=== PATIENT | male | born 1990 | race African-American/Black ===

== ENCOUNTER 2019-04-06 10:25 | Emergency (ER) | payer SELFPAY ==
[~2019-04-06] VITALS: Ht 195.6 cm; Wt 117.9 kg
[2019-04-06 10:35] VITALS: BP 166/96
--- NOTE | 2019-04-06 11:04 | PHYS DOC ---
Adult General Chief Complaint Chief Complaint: SEXUALLY TRANSMITTED DISEASE HPI HPI Patient is a 28 year old male who presents with white penile discharge and dysuria this been ongoing for 4 days. The patient states a 2 weeks ago he slept with a stripper. Denies any other complaints. Review of Systems Review of Systems Constitutional: Denies fever or chills [] Eyes: Denies change in visual acuity, redness, or eye pain [] HENT: Denies nasal congestion or sore throat [] Respiratory: Denies cough or shortness of breath [] Cardiovascular: No additional information not addressed in HPI [] GI: Denies abdominal pain, nausea, vomiting, bloody stools or diarrhea [] : Reports dysuria and penile discharge. Musculoskeletal: Denies back pain or joint pain [] Integument: Denies rash or skin lesions [] Neurologic: Denies headache, focal weakness or sensory changes [] Endocrine: Denies polyuria or polydipsia [] Complete systems were reviewed and found to be within normal limits, except as documented in this note. Current Medications Current Medications Current Medications Medications (Trade) Dose Ordered Sig/You Start Time Stop Time Status Last Admin Dose Admin Azithromycin (Zithromax) 1,000 mg 1X ONCE 04/06/19 11:30 04/06/19 11:31 DC 04/06/19 11:20 1,000 MG Ceftriaxone Sodium (Rocephin Im) 250 mg 1X STAT 04/06/19 11:13 04/06/19 11:16 DC 04/06/19 11:24 250 MG Ceftriaxone Sodium (Rocephin) 1 gm 1X ONCE 04/06/19 11:30 04/06/19 11:15 DC Allergies Allergies Allergies Coded Allergies Type Severity Reaction Last Updated Verified No Known Drug Allergies 04/06/19 No Physical Exam Physical Exam Constitutional: Well developed, well nourished, no acute distress, non-toxic appearance. [] HENT: Normocephalic, atraumatic, bilateral external ears normal, oropharynx moist, no oral exudates, nose normal. [] Eyes: PERRLA, EOMI, conjunctiva normal, no discharge. [] Neck: Normal range of motion, no tenderness, supple, no stridor. [] Skin: Warm, dry, no erythema, no rash. [] Back: No tenderness, no CVA tenderness. [] Extremities: No tenderness, no cyanosis, no clubbing, ROM intact, no edema. [] Neurologic: Alert and oriented X 3, normal motor function, normal sensory function, no focal deficits noted. [] Psychologic: Affect normal, judgement normal, mood normal. [] Current Patient Data Vital Signs Vital Signs Date Time Temp Pulse Resp B/P (MAP) Pulse Ox O2 Delivery O2 Flow Rate FiO2 04/06/19 10:35 97.8 89 14 166/96 (119) 100 Room Air 97.8 Lab Values Laboratory Tests Test 04/06/19 10:40 Urine Collection Type Void Urine Color Yellow Urine Clarity Clear Urine pH 6.0 Urine Specific [place] 1.020 Urine Protein Negative mg/dL (NEG-TRACE) Urine Glucose (UA) Negative mg/dL (NEG) Urine Ketones (Stick) Negative mg/dL (NEG) Urine Blood Negative (NEG) Urine Nitrite Negative (NEG) Urine Bilirubin Negative (NEG) Urine Urobilinogen Dipstick 1.0 mg/dL (0.2 mg/dL) Urine Leukocyte Esterase Large (NEG) Urine RBC 0 /HPF (0-2) Urine WBC >40 /HPF (0-4) Urine Squamous Epithelial Cells Occ /LPF Urine Bacteria Few /HPF (0-FEW) EKG EKG [] Radiology/Procedures Radiology/Procedures [] Course & Med Decision Making Course & Med Decision Making Pertinent Labs and Imaging studies reviewed. (See chart for details) Will treat for gonorrhea and chlamydia with Rocephin and Ceftriaxone and get urine. Urine shows leukocytes. Will treat with Keflex. Dragon Disclaimer Dragon Disclaimer This electronic medical record was generated, in whole or in part, using a voice recognition dictation system. Departure Departure Impression: Primary Impression: Concern about sexually transmitted disease in male without diagnosis Additional Impression: Urinary tract infection Disposition: HOME, SELF-CARE Condition: STABLE Referrals: NO PCP (PCP) Patient Instructions: Sexually Transmitted Disease Additional Instructions: Thank you for visiting [facility]. We appreciate you trusting us with your care. If any additional problems come up don't hesitate to return to visit us. Please follow up with your primary care provider so they can plan additional care if needed and know about the problem that you had. If symptoms worsen come back to the Emergency Department. Any concerning symptoms that start such as chest pain, shortness of air, weakness or numbness on one side of the body, running high fevers or any other concerning symptoms return to the ER. Your STD results will be back in 48-72 hours. You will get a call if they are positive. No sexually intercourse for 2 weeks. If positive you have been treated and just need to notify any partners. Scripts Cephalexin (KEFLEX) 500 Mg Capsule 1 CAP PO QID for 5 Days, #20 CAP 0 Refills Prov: RAFIQ ESCUDERO APRN 04/06/19 Problem Qualifiers Additional Impression: Urinary tract infection Urinary tract infection type: acute cystitis Hematuria presence: without hematuria Qualified Codes: N30.00 - Acute cystitis without hematuria RAFIQ ESCUDERO APRN Apr 06, 2019 11:04
[2019-04-06] MEDS ORDERED: cefTRIAXone IM 250 MG VIAL IM STA (11:13)
[2019-04-06 11:18] LABS: BILIRUBIN,URINE NEGATIVE (NEG); CLARITY,URINE CLEAR; COLOR,URINE YELLOW; NITRITE,URINE NEGATIVE (NEG); PROTEIN,URINE NEGATIVE (NEG-TRACE)
[2019-04-06] MEDS ORDERED: cefTRIAXone IV Push 1 GM VIAL. IVP ONE (11:30)
[2019-04-06] MEDS ORDERED: AZITHROMYCIN 250 MG TABLET. PO ONE (11:30)
[2019-04-06 11:36] LABS: SQUAMOUS EPITHELIAL CELL,UR OCC /LPF
[2019-04-06 11:37] LABS: BACTERIA,URINE FEW /HPF (0-FEW); RBC,URINE 0 /HPF (0-2); WBC,URINE >40 /HPF (0-4)
[2019-04-06] MEDS ORDERED: CEPH-264 PO (11:45)
== END 2019-04-06 11:59 | disposition home or self-care (01) ==
LOC: ER 10:25
DX: N39.0 Urinary tract infection, site not specified (principal); R36.9 Urethral discharge, unspecified; Z79.899 Other long term (current) drug therapy
CPT/HCPCS: 81001; 87086; 87491; 87591; 96372; 99284; J0696; Q0144

== ENCOUNTER 2019-05-03 15:28 | Inpatient (IN) | payer SELFPAY ==
[~2019-05-03] VITALS: Ht 195.6 cm; Wt 108.9 kg
[~2019-05-03 15:28] MED LIST: CEPH-264 PO
[2019-05-03] MEDS ORDERED: IV NORMAL SALINE 1000ML BAG 1,000 ML IV ONE (16:00)
--- NOTE | 2019-05-03 16:09 | PHYS DOC ---
Past Medical History Additional Past Medical Histor: SCOLIOSIS (RAFIQ FRAZIER DO) Past Surgical History: Other Additional Past Surgical Histo: BACK (RAFIQ FRAZIER DO) Smoking: Cigarettes Alcohol Use: Occasionally Drug Use: Amphetamine, Marijuana (RAFIQ FRAZIER DO) Adult General Chief Complaint Chief Complaint: ABDOMINAL PAIN HPI HPI Patient is a 28 year old male with no significant past medical history who presents with 2 days of abdominal pain and diarrhea. The patient states the pain is mainly in his left upper quadrant, constant since, and severe. He denies any sick contacts, recent travel, or new foods. He denies any fever, chills, vomiting, chest pain, lightheadedness, or dizziness. He denies any blood in his stool. He denies any dysuria, frequency, or urgency. (RAFIQ FRAZIER DO) Review of Systems Review of Systems Constitutional: Denies fever or chills Eyes: Denies redness or eye pain HENT: Denies nasal congestion or sore throat Respiratory: Denies cough or shortness of breath Cardiovascular: Denies chest pain or palpitations GI: Reports LUQ abdominal pain, nausea; denies vomiting : Denies dysuria or hematuria Musculoskeletal: Denies back pain or joint pain Integument: Denies rash or skin lesions Neurologic: Denies headache, focal weakness or sensory changes Complete systems were reviewed and found to be within normal limits, except as documented in this note. (RAFIQ FRAZIER DO) Current Medications Current Medications Current Medications Medications (Trade) Dose Ordered Sig/You Start Time Stop Time Status Last Admin Dose Admin Famotidine (Pepcid Vial) 20 mg 1X ONCE 05/03/19 16:15 05/03/19 16:16 DC 05/03/19 16:15 20 MG Fentanyl Citrate (Fentanyl 2ml Vial) 50 mcg 1X ONCE 05/03/19 17:45 05/03/19 17:47 DC 05/03/19 17:51 50 MCG Info (CONTRAST GIVEN -- Rx MONITORING) 1 each PRN DAILY PRN 05/03/19 17:45 05/05/19 17:44 Iohexol (Omnipaque 300 Mg/ml) 75 ml 1X ONCE 05/03/19 17:45 05/03/19 17:46 DC 05/03/19 18:34 75 ML Ketorolac Tromethamine (Toradol 30mg Vial) 30 mg 1X ONCE 05/03/19 19:15 05/03/19 19:16 DC 05/03/19 19:21 30 MG Lorazepam (Ativan Inj) 1 mg 1X ONCE 05/03/19 17:15 05/03/19 17:16 DC Metoclopramide HCl (Reglan Vial) 10 mg 1X ONCE 05/03/19 19:45 05/03/19 19:46 DC Morphine Sulfate (Morphine Sulfate) 4 mg 1X ONCE 05/03/19 19:45 05/03/19 19:46 DC 05/03/19 19:52 4 MG Ondansetron HCl (Zofran) 4 mg 1X ONCE 05/03/19 17:45 05/03/19 17:46 DC 05/03/19 17:25 4 MG Sodium Chloride 1,000 ml @ 1,000 mls/hr 1X ONCE 05/03/19 16:00 05/03/19 16:59 DC 05/03/19 16:44 1,000 MLS/HR (RAMILA TRAN DO) Allergies Allergies Allergies Coded Allergies Type Severity Reaction Last Updated Verified No Known Drug Allergies 04/06/19 No (RAMILA TRAN DO) Physical Exam Physical Exam Constitutional: 28yo male in moderate distress. HENT: Normocephalic, atraumatic, oropharynx moist Eyes: conjunctiva normal, no discharge Cardiovascular: Heart rate normal, regular rhythm Lungs & Thorax: Bilateral breath sounds clear to auscultation, no wheezing Abdomen: Diffuse tenderness throughout, worse on left side. Abdomen mildly distended. Voluntary guarding. Skin: Warm, dry, no erythema, no rash Extremities: No tenderness, ROM intact, no edema Neurologic: Alert and oriented X 3, normal motor function, normal sensory functi on, no focal deficits noted Psychologic: Affect normal, judgement normal, mood normal (RAFIQ FRAZIER DO) Current Patient Data Vital Signs Vital Signs Date Time Temp Pulse Resp B/P (MAP) Pulse Ox O2 Delivery O2 Flow Rate FiO2 05/03/19 19:52 16 99 Room Air 05/03/19 18:48 80 145/83 (103) 05/03/19 15:42 97.6 97.6 (RAMILA TRAN DO) Lab Values Laboratory Tests Test 05/03/19 16:45 White Blood Count 9.6 x10^3/uL (4.0-11.0) Red Blood Count 6.05 x10^6/uL (4.30-5.70) H Hemoglobin 17.5 g/dL (13.0-17.5) Hematocrit 53.3 % (39.0-53.0) H Mean Corpuscular Volume 88 fL (79-100) Mean Corpuscular Hemoglobin 29 pg (25-35) Mean Corpuscular Hemoglobin Concent 33 g/dL (31-37) Red Cell Distribution Width 15.1 % (11.5-14.5) H Platelet Count 267 x10^3/uL (140-400) Neutrophils (%) (Auto) 84 % (31-73) H Lymphocytes (%) (Auto) 10 % (24-48) L Monocytes (%) (Auto) 5 % (0-9) Eosinophils (%) (Auto) 0 % (0-3) Basophils (%) (Auto) 0 % (0-3) Neutrophils # (Auto) 8.1 x10^3/uL (1.8-7.7) H Lymphocytes # (Auto) 0.9 x10^3/uL (1.0-4.8) L Monocytes # (Auto) 0.5 x10^3/uL (0.0-1.1) Eosinophils # (Auto) 0.0 x10^3/uL (0.0-0.7) Basophils # (Auto) 0.0 x10^3/uL (0.0-0.2) Sodium Level 138 mmol/L (136-145) Potassium Level 4.9 mmol/L (3.5-5.1) Chloride Level 99 mmol/L (98-107) Carbon Dioxide Level 29 mmol/L (21-32) Anion Gap 10 (6-14) Blood Urea Nitrogen 11 mg/dL (8-26) Creatinine 1.2 mg/dL (0.7-1.3) Estimated GFR (Cockcroft-Gault) 86.6 BUN/Creatinine Ratio 9 (6-20) Glucose Level 93 mg/dL (70-99) Calcium Level 10.1 mg/dL (8.5-10.1) Magnesium Level 2.1 mg/dL (1.8-2.4) Total Bilirubin 0.2 mg/dL (0.2-1.0) Aspartate Amino Transferase (AST) 20 U/L (15-37) Alanine Aminotransferase (ALT) 21 U/L (16-63) Alkaline Phosphatase 82 U/L (46-116) Total Protein 9.5 g/dL (6.4-8.2) H Albumin 4.6 g/dL (3.4-5.0) Albumin/Globulin Ratio 0.9 (1.0-1.7) L Lipase 62 U/L (73-393) L Laboratory Tests 05/03/19 16:45 Laboratory Tests 05/03/19 16:45 (RAMILA TRAN DO) Lab Values Laboratory Tests Test 05/03/19 16:45 White Blood Count 9.6 x10^3/uL (4.0-11.0) Red Blood Count 6.05 x10^6/uL (4.30-5.70) H Hemoglobin 17.5 g/dL (13.0-17.5) Hematocrit 53.3 % (39.0-53.0) H Mean Corpuscular Volume 88 fL (79-100) Mean Corpuscular Hemoglobin 29 pg (25-35) Mean Corpuscular Hemoglobin Concent 33 g/dL (31-37) Red Cell Distribution Width 15.1 % (11.5-14.5) H Platelet Count 267 x10^3/uL (140-400) Neutrophils (%) (Auto) 84 % (31-73) H Lymphocytes (%) (Auto) 10 % (24-48) L Monocytes (%) (Auto) 5 % (0-9) Eosinophils (%) (Auto) 0 % (0-3) Basophils (%) (Auto) 0 % (0-3) Neutrophils # (Auto) 8.1 x10^3/uL (1.8-7.7) H Lymphocytes # (Auto) 0.9 x10^3/uL (1.0-4.8) L Monocytes # (Auto) 0.5 x10^3/uL (0.0-1.1) Eosinophils # (Auto) 0.0 x10^3/uL (0.0-0.7) Basophils # (Auto) 0.0 x10^3/uL (0.0-0.2) Sodium Level 138 mmol/L (136-145) Potassium Level 4.9 mmol/L (3.5-5.1) Chloride Level 99 mmol/L (98-107) Carbon Dioxide Level 29 mmol/L (21-32) Anion Gap 10 (6-14) Blood Urea Nitrogen 11 mg/dL (8-26) Creatinine 1.2 mg/dL (0.7-1.3) Estimated GFR (Cockcroft-Gault) 86.6 BUN/Creatinine Ratio 9 (6-20) Glucose Level 93 mg/dL (70-99) Calcium Level 10.1 mg/dL (8.5-10.1) Magnesium Level 2.1 mg/dL (1.8-2.4) Total Bilirubin 0.2 mg/dL (0.2-1.0) Aspartate Amino Transferase (AST) 20 U/L (15-37) Alanine Aminotransferase (ALT) 21 U/L (16-63) Alkaline Phosphatase 82 U/L (46-116) Total Protein 9.5 g/dL (6.4-8.2) H Albumin 4.6 g/dL (3.4-5.0) Albumin/Globulin Ratio 0.9 (1.0-1.7) L Lipase 62 U/L (73-393) L Laboratory Tests 05/03/19 16:45 Laboratory Tests 05/03/19 16:45 (RAFIQ FRAZIER DO) EKG EKG [] (RAFIQ FRAZIER DO) Radiology/Procedures Radiology/Procedures [] (RAFIQ FRAZIER DO) Radiology/Procedures [facility] [address] [place], [place] [id number] IMAGING REPORT Signed PATIENT: JESUS ASHFORD ACCOUNT: [id number] : 1990 LOCATION: ER AGE: 28 SEX: M EXAM STATUS: REG ER ORD. PHYSICIAN: RAFIQ FRAZIER DO REASON: distention, abdominal pain- LUQ PROCEDURE: CT ABD PELV W/ IV CONTRST ONLY EXAM: CT Abdomen and Pelvis with IV contrast CLINICAL HISTORY: distention, abdominal pain- LUQ. COMPARISON: none TECHNIQUE: Helical CT of the abdomen and pelvis was performed following the administration of intravenous contrast. Axial, coronal and sagittal reformatted images were generated. PQRS compliance statement - One or more of the following individualized dose reduction techniques were utilized for this study: 1. Automated exposure control 2. Adjustment of the mA and/or kV according to patient size 3. Use of iterative reconstruction technique FINDINGS: Lower chest: Minimal dependent opacities bilaterally likely atelectasis. Tree-in-bud opacities left lower lobe may represent infectious or inflammatory process. Evaluation limited given streak artifact from posterior spinal fusion hardware. Abdomen and Pelvis: Within the limitations from streak artifact from posterior spinal hardware: No focal liver lesion. Gallbladder is normal. No biliary ductal dilatation. Spleen is unremarkable. Adrenal glands and pancreas are unremarkable. Symmetric nephrograms. No focal renal lesion. No hydronephrosis. Appendix is normal. No small or large bowel dilatation. Moderate colonic stool content. Diffuse small bowel dilatation to a transition point in the right lower quadrant (series 2 image 69; series 4 image 23) consistent with small bowel obstruction. No free intraperitoneal gas. No significant abdominal or pelvic ascites. No abdominal or pelvic lymphadenopathy. Bones: Deformity of the right posterior iliac bone likely from bone graft harvest site. Thoracolumbar scoliosis. IMPRESSION: 1. Small bowel obstruction with a transition point in the right lower quadrant. No associated free or loculated fluid collection or pneumoperitoneum. 2. Tree-in-bud opacities dependently left lower lobe may represent atypical infectious or fibrotic process. Electronically signed by: Lopez Dey MD (05/03/2019 7:28 PM) [facility] DICTATED and SIGNED BY: LOPEZ DEY MD DATE: 05/03/191927 (RAMILA TRAN DO) Course & Med Decision Making Course & Med Decision Making Patient is a 28-year-old male with no significant past medical history who presents with 2 days of abdominal pain and diarrhea. The patient was in moderate distress upon arrival. Abdominal exam showed tenderness to palpation throughout the abdomen, worse on the left side. Patient was guarding against movement and palpation. However, abdomen did not appear to be surgically acute. Routine abdominal labs were obtained and pending. CT with IV contrast of the abdomen was ordered. Zofran 4mg, Pepcid 20mg, and Fentanyl 50mcg were administered. Sign out given to Dr. Tran for further evaluation and final disposition. Discussed current findings and plan with patient and family, who acknowledge understanding and agreement. (RAFIQ FRAZIER DO) Course & Med Decision Making CT SCAN SHOWN SBO WITH TRANSITION POINT AT RLQ. GENERAL SURGEON FIELD SERVICES ANALYST, DR. MEDINA WAS CONSULTED BY PHONE, RECOMMENDED ADMISSION, NGT PLACEMENT, LACTIC ACID, WILL SEE PATIENT IN AM. PATIENT AND HIS FAMILY WERE DISCUSSED ABOUT CT SCAN FINDING, TREATMENT PLAN, AMENABLE TO PLAN OF CARE (RAMILA TRAN DO) Dragon Disclaimer Dragon Disclaimer This electronic medical record was generated, in whole or in part, using a voice recognition dictation system. (RAFIQ FRAZIER DO) Departure Departure Impression: Primary Impression: Abdominal pain Additional Impression: Small bowel obstruction Disposition: ADMITTED INPATIENT Admitting Physician: THAD (Raffi Mathur) (RAFIQ FRAZIER DO) Admitting Physician: THAD (Raffi Mathur) (RAMILA TRAN DO) Condition: STABLE Referrals: NO PCP (PCP) Problem Qualifiers Primary Impression: Abdominal pain Abdominal location: unspecified location Qualified Codes: R10.9 - Unspecified abdominal pain RAFIQ FRAZIER DO May 03, 2019 16:09 RAMILA TRAN DO May 03, 2019 20:10
[2019-05-03] MEDS ORDERED: FAMOTIDINE 20 MG/2 ML VIAL IVP ONE (16:15)
[2019-05-03] MEDS ORDERED: fentaNYL PF VIAL 100 MCG/2 ML VIAL IV ONE ×2 (16:15→17:45)
[2019-05-03] MEDS ORDERED: ONDANSETRON PF 4 MG/2 ML VIAL. IV ONE (16:15)
[2019-05-03 16:55] LABS: BASO % 0 % (0-3); EOS % 0 % (0-3); HEMATOCRIT 53.3 % (39.0-53.0); HEMOGLOBIN 17.5 g/dL (13.0-17.5); LYMPH # 0.9 x10^3/uL (1.0-4.8); LYMPH % 10 % (24-48); MEAN CORPUSCULAR HEMOGLOBIN 29 pg (25-35); MEAN CORPUSCULAR HGB CONC 33 g/dL (31-37); MEAN CORPUSCULAR VOLUME 88 fL (79-100); MONO # 0.5 x10^3/uL (0.0-1.1); MONO % 5 % (0-9); NEUT # 8.1 x10^3/uL (1.8-7.7); NEUT % 84 % (31-73); PLATELET COUNT 267 x10^3/uL (140-400); RED BLOOD COUNT 6.05 x10^6/uL (4.30-5.70); RED CELL DISTRIBUTION WIDTH 15.1 % (11.5-14.5); WHITE BLOOD COUNT 9.6 x10^3/uL (4.0-11.0)
[2019-05-03 17:12] LABS: CALCIUM 10.1 mg/dL (8.5-10.1); CREATININE 1.2 mg/dL (0.7-1.3); GFR 86.6; POTASSIUM 4.9 mmol/L (3.5-5.1)
[2019-05-03 17:18] LABS: ALBUMIN 4.6 g/dL (3.4-5.0); ALBUMIN/GLOBULIN RATIO 0.9 (1.0-1.7); MAGNESIUM 2.1 mg/dL (1.8-2.4); TOTAL BILIRUBIN 0.2 mg/dL (0.2-1.0); TOTAL PROTEIN 9.5 g/dL (6.4-8.2)
[2019-05-03] MEDS ORDERED: CONTRAST GIVEN. MC PRN (17:45)
[2019-05-03] MEDS ORDERED: ONDANSETRON PF 4 MG/2 ML VIAL. IVP ONE (17:45)
[2019-05-03] MEDS ORDERED: IOHEXOL 300 MG/ML 100ML VIAL. IV ONE (17:45)
[2019-05-03] MEDS ORDERED: KETOROLAC 30 MG/ML VIAL. IVP ONE (19:15)
--- NOTE | 2019-05-03 19:31 | RAD ---
EXAM: CT Abdomen and Pelvis with IV contrast CLINICAL HISTORY: distention, abdominal pain- LUQ. COMPARISON: none TECHNIQUE: Helical CT of the abdomen and pelvis was performed following the administration of intravenous contrast. Axial, coronal and sagittal reformatted images were generated. PQRS compliance statement - One or more of the following individualized dose reduction techniques were utilized for this study: 1. Automated exposure control 2. Adjustment of the mA and/or kV according to patient size 3. Use of iterative reconstruction technique FINDINGS: Lower chest: Minimal dependent opacities bilaterally likely atelectasis. Tree-in-bud opacities left lower lobe may represent infectious or inflammatory process. Evaluation limited given streak artifact from posterior spinal fusion hardware. Abdomen and Pelvis: Within the limitations from streak artifact from posterior spinal hardware: No focal liver lesion. Gallbladder is normal. No biliary ductal dilatation. Spleen is unremarkable. Adrenal glands and pancreas are unremarkable. Symmetric nephrograms. No focal renal lesion. No hydronephrosis. Appendix is normal. No small or large bowel dilatation. Moderate colonic stool content. Diffuse small bowel dilatation to a transition point in the right lower quadrant (series 2 image 69; series 4 image 23) consistent with small bowel obstruction. No free intraperitoneal gas. No significant abdominal or pelvic ascites. No abdominal or pelvic lymphadenopathy. Bones: Deformity of the right posterior iliac bone likely from bone graft harvest site. Thoracolumbar scoliosis. IMPRESSION: 1. Small bowel obstruction with a transition point in the right lower quadrant. No associated free or loculated fluid collection or pneumoperitoneum. 2. Tree-in-bud opacities dependently left lower lobe may represent atypical infectious or fibrotic process. Electronically signed by: Lopez Hewitt MD (05/03/2019 7:28 PM) [place] [id number]
[2019-05-03] MEDS ORDERED: MORPHINE SULFATE 4 MG/ML VIAL. IV ONE (19:45)
[2019-05-03] MEDS ORDERED: METOCLOPRAMIDE HCL 10 MG/2 ML VIAL. IVP ONE (19:45)
[2019-05-03] MEDS ORDERED: ONDANSETRON PF 4 MG/2 ML VIAL. IV PRN (20:15)
--- NOTE | 2019-05-03 21:50 | NUR ---
The patient, JESUS ASHFORD, 28 y/o, M admitted by ANJELICA SHARIF MD, arrived to room 569 via WC accompanied by ED staff and mom. The pt was given written information regarding hospital policies, unit procedures and contact persons. Pt now resting comfortably in bed, VSS, call light in reach. Valuables were checked and pt sent home with mom. Flu vaccine offered - pt eligible and declined at this time.
[2019-05-03] MEDS: MORPHINE SULFATE 4 MG/ML VIAL. IV PRN (22:23)
[2019-05-03] MEDS: IV NORMAL SALINE 1000ML BAG 1,000 ML IV SCH (22:35)
[2019-05-03 22:38] VITALS: BP 145/92
[2019-05-04] MEDS: MORPHINE SULFATE 4 MG/ML VIAL. IV PRN (02:28)
[2019-05-04 03:11] VITALS: BP 146/90
[2019-05-04 07:00] VITALS: BP 144/84
[2019-05-04] MEDS: IV NORMAL SALINE 1000ML BAG 1,000 ML IV SCH (08:41)
--- NOTE | 2019-05-04 10:04 | NUR ---
Pain meds: pt requested pain meds, by the time this nurse went to room to admin, pt was snoring quietly. Did not wake pt. Will continue to monitor.
[2019-05-04 11:00] VITALS: BP 119/73
--- NOTE | 2019-05-04 14:14 | SSS ---
ADMIT DATE: 05/04/2019 CHIEF COMPLAINT: Nausea and abdominal pain. HISTORY OF PRESENT ILLNESS: The patient is a pleasant, relatively healthy middle-aged male, who presented with abdominal pain, had some associated nausea. We did some imaging in the ER, showing a possible small-bowel obstruction. He has now been admitted overnight for observation, where he is hungry now, wants to go home. We are going to try to advance his diet and discharge this afternoon. PAST MEDICAL HISTORY: Benign of scoliosis and back pain and tobacco abuse, marijuana use, amphetamine use. ALLERGIES: None. FAMILY HISTORY: Diabetes. SOCIAL HISTORY: He smokes and drinks socially. 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 MEDICATIONS: Reviewed, please refer to the MRAD. REVIEW OF SYSTEMS: GENERAL: No history of weight change, weakness or fevers. SKIN: No bruising, hair changes or rashes. EYES: No blurred, double or loss of vision. NOSE AND THROAT: No history of nosebleeds, hoarseness or sore throat. HEART: No history of palpitations, chest pain or shortness of breath on exertion. LUNGS: Denies cough, hemoptysis, wheezing or shortness of breath. GASTROINTESTINAL: Denies changes in appetite, nausea, vomiting, diarrhea or constipation. GENITOURINARY: No history of frequency, urgency, hesitancy or nocturia. NEUROLOGIC: Denies history of numbness, tingling, tremor or weakness. PSYCHIATRIC: No history of panic, anxiety or depression. ENDOCRINE: No history of heat or cold intolerance, polyuria or polydipsia. EXTREMITIES: Denies muscle weakness, joint pain, pain on walking or stiffness. PHYSICAL EXAMINATION: VITALS: Within normal limits and are stable. GENERAL: No apparent distress. Alert and oriented. HEENT: Normal cephalic atraumatic, external auditory canals are patent EYES: Extraocular muscles are intact, pupils are equally round and reactive to light and accommodation MUSCULOSKELETAL: Well developed, well nourished, good range of motion ENDOCRINE: No thyromegaly was palpated LYMPHATICS: No cervical chain or axillary nodes were noted HEMATOPOIETIC: No bruising NECK: Supple, no JVD, no thyromegaly was noted. LUNGS: Clear to auscultation in all lung campuzano without rhonchi or wheezing. HEART: RRR, S1, S2 present. Peripheral pulses intact, no obvious murmurs were noted. ABDOMEN: Soft, nontender. Positive bowel sounds no organomegaly, normal bowel sounds. EXTREMITIES: Without any cyanosis, clubbing, or edema. Pedal pulses intact, Homans sign is negative. NEUROLOGIC: Normal speech, normal tone. A & O x3, moves all extremities, no obvious focal deficits. PSYCHIATRIC: Normal affect, normal mood. Stable. SKIN: No ulcerations or rashes, good skin turgor, no jaundice. VASCULAR: Good capillary refill, neurovascular bundle appears to be intact. ASSESSMENT AND PLAN: Resolving small-bowel obstruction. We are going to advance his diet and discharge if he tolerates it. DISPOSITION: Home. ACTIVITY: As tolerated. DIET: Low sodium. MEDICATIONS: Please see MRAD. TOTAL TIME: 34 minutes. SAMARA KARIMI DO DR: RAFAEL/elizabeth JOB#: [id number] / [id number]
[2019-05-04 15:00] VITALS: BP 147/83
--- NOTE | 2019-05-04 15:23 | NUR ---
Discharge Note: JESUS ASHFORD [address] Discharge instructions and discharge home medications reviewed with Patient and his mother, and a copy given. All questions have been answered and understanding verbalized. The following instructions and handouts were given: patient visit report, medication information, educatin. Discontinued lines and drains: peripheral IV, tip intact. Patient discharged to home with self care via private vehicle. Patient left unit awake, in stable condition with all personal belongings. Rx [facility], spoke with [place] pharmacist.
== END 2019-05-04 14:05 | disposition home or self-care (01) | DRG 390 ==
LOC: ER 15:28 → 5 SOUTH 20:05
PROVIDERS: ADMIT Family Medicine; ATTEND Family Medicine
DX: K56.609 Unspecified intestinal obstruction, unspecified as to partial versus complete obstruction (principal); F17.200 Nicotine dependence, unspecified, uncomplicated; F15.90 Other stimulant use, unspecified, uncomplicated; Z83.3 Family history of diabetes mellitus
CPT/HCPCS: 36415; 74177; 80053; 83605; 83690; 83735; 85025; J1885; J2270; J2405; J2765; J3010; J3490; J7030; Q9967; G0378